=== PATIENT | male | born 1980 | race Caucasian/White ===

== ENCOUNTER 2022-08-07 17:50 | Emergency (ER) | payer BC ==
[~2022-08-07] VITALS: Ht 167.6 cm; Wt 77.1 kg
[2022-08-07 17:59] VITALS: BP 133/78
[2022-08-07] MEDS ORDERED: HYDR-4303 PO (19:21)
--- NOTE | 2022-08-07 20:20 | NUR ---
Patient discharged to home in stable condition. Written and verbal after care instructions given. Patient verbalizes understanding of instruction.
== END 2022-08-07 20:20 | disposition home or self-care (01) ==
LOC: ER 17:52
DX: S92.511A Displaced fracture of proximal phalanx of right lesser toe(s), initial encounter for closed fracture (principal); W22.8XXA Striking against or struck by other objects, initial encounter; Y93.89 Activity, other specified; Y92.89 Other specified places as the place of occurrence of the external cause; Y99.8 Other external cause status
CPT/HCPCS: 73660-TC